=== PATIENT | male | born 1995 | race African-American/Black ===

== ENCOUNTER 2017-09-15 21:15 | Emergency (ER) | payer MEDICAID, SELFPAY ==
--- NOTE | 2017-09-15 21:43 | RAD ---
LEFT ANKLE THREE VIEWS: History: Injury. Comparison: None. FINDINGS: Some chronic appearing periosteal bone formation on the medial malleolus, likely retinacular injury. Small osteophytes of the medial shoulder of the ankle mortise. Small chip fracture off the lateral process of the talus. IMPRESSION: 1. Small chip fracture the lateral process of the talus. POS: [facility]
[2017-09-15] MEDS ORDERED: HYDROcodone/Acetaminophen 10/325 mg Tablet ONE (23:45)
== END 2017-09-16 00:54 | disposition home or self-care (01) ==
LOC: ERS 21:15
DX: S93.402A Sprain of unspecified ligament of left ankle, initial encounter (principal); F32.9 Major depressive disorder, single episode, unspecified; W52.XXXA Crushed, pushed or stepped on by crowd or human stampede, initial encounter

== ENCOUNTER 2017-10-25 17:58 | Emergency (ER) | payer SELFPAY ==
--- NOTE | 2017-10-25 18:27 | RAD ---
CHEST TWO VIEW 10/25/17 HISTORY: Cough. COMPARISON: None. FINDINGS: The lungs are clear. No pneumothorax or effusion. The cardiac silhouette and mediastinal contours are within normal limits. IMPRESSION: No acute intrathoracic abnormality. POS: [facility]
== END 2017-10-25 21:16 | disposition home or self-care (01) ==
LOC: ERS 17:58
DX: J20.9 Acute bronchitis, unspecified (principal); F32.9 Major depressive disorder, single episode, unspecified
CPT/HCPCS: 71046; 94640; J7620

== ENCOUNTER 2018-01-15 20:09 | Emergency (ER) | payer SELFPAY ==
[2018-01-15] MEDS ORDERED: Ketorolac Tromethamine 30 MG/ML VIAL ONE (20:55)
--- NOTE | 2018-01-15 21:54 | RAD ---
THREE VIEWS OF THE RIGHT ANKLE: 01/15/18 COMPARISON: None. HISTORY: Inversion of the right ankle with right ankle pain. FINDINGS: Three views right ankle shows no evidence of acute fracture or dislocation. No focal soft tissue swel ling is seen. No degenerative changes are present. IMPRESSION: No evidence of acute osseous abnormality. POS: [facility]
== END 2018-01-15 22:05 | disposition home or self-care (01) ==
LOC: ERS 20:09
DX: S93.401A Sprain of unspecified ligament of right ankle, initial encounter (principal); F32.9 Major depressive disorder, single episode, unspecified; W18.30XA Fall on same level, unspecified, initial encounter; Y93.67 Activity, basketball; Y92.214 College as the place of occurrence of the external cause
CPT/HCPCS: 96374; J1885

== ENCOUNTER 2019-11-14 18:30 | Emergency (ER) | payer SELFPAY ==
[2019-11-14 20:56] LABS: Bilirubin Negative (Negative); Blood, Urine Negative (Negative); Clarity Clear (Clear); Glucose, Urine (Dipstick) Normal (Negative); Leukocyte 250 Leu/uL (Negative); Mucous/LPF 1+ LPF (<2+); Nitrite Negative (Negative); Protein, Urine (Dipstick) 20 mg/dL (Neg-Trace); RBC/HPF 0-3 HPF (0-3); Squamous Epithelial 0-3 HPF (0-3); Urobilinogen Normal mg/dL (Less than 2); WBC/HPF 21-50 HPF (0-3)
[2019-11-14 21:03] LABS: Bacteria/HPF 1+ HPF (None Seen); Renal Epithelial 0-3 HPF (None Seen)
[2019-11-14] MEDS ORDERED: Lidocaine 1% PF 5 ML VIAL ONE (23:12)
[2019-11-14] MEDS ORDERED: cefTRIAXone\\ROCEPHIN 250 MG VIAL ONE (23:12)
[2019-11-14] MEDS ORDERED: Azithromycin 250 MG TAB ONE (23:12)
[2019-11-16 19:31] LABS: Chlam.trachomatis by PCR,Urine Not Detected (NotDetected)
== END 2019-11-14 23:42 | disposition home or self-care (01) ==
LOC: ERS 18:30
DX: N34.1 Nonspecific urethritis (principal); F32.9 Major depressive disorder, single episode, unspecified
CPT/HCPCS: 81003; 81015; 87086; 87491; 87591; 96372; 99283; J0696; J2001

== ENCOUNTER 2020-10-28 20:31 | Emergency (ER) | payer SELFPAY ==
[2020-10-28] MEDS ORDERED: Benzocaine 20% Spray 60 ML CAN ONE (21:19)
[2020-10-28 21:37] LABS: Bilirubin Negative (Negative); Blood, Urine Negative (Negative); Clarity Turbid (Clear); Glucose, Urine (Dipstick) Normal (Negative); Ketone, Urine Negative (Negative); Leukocyte 500 Leu/uL (Negative); Mucous/LPF Rare LPF (<2+); Nitrite Negative (Negative); Protein, Urine (Dipstick) 10 mg/dL (Neg-Trace); RBC/HPF 0-3 HPF (0-3); Specific Gravity, Urine 1.025 (1.002-1.036); Squamous Epithelial 0-3 HPF (0-3); WBC/HPF Greater than 50 HPF (0-3)
[2020-10-28 21:45] LABS: Bacteria/HPF Rare-Few HPF (None Seen); Renal Epithelial 0-3 HPF (None Seen)
[2020-10-28] MEDS ORDERED: cefTRIAXone\\ROCEPHIN 500 MG VIAL ONE (22:06)
[2020-10-28] MEDS ORDERED: Sterile Water 10 ML ONE (22:06)
[2020-10-29 20:24] LABS: Chlam.trachomatis by PCR,Urine DETECTED (NotDetected)
== END 2020-10-28 23:05 | disposition home or self-care (01) ==
LOC: ERS 20:31
DX: J02.9 Acute pharyngitis, unspecified (principal); N34.2 Other urethritis
CPT/HCPCS: 81003; 81015; 87081; 87430; 87491; 87591; 96372; 99283; J0696

== ENCOUNTER 2021-03-13 23:16 | Emergency (ER) | payer SELFPAY | END 2021-03-14 01:11 | disposition home or self-care (01) | LOC: ERS 23:16 | DX: S93.401A Sprain of unspecified ligament of right ankle, initial encounter (principal); X50.1XXA Overexertion from prolonged static or awkward postures, initial encounter; Y93.67 Activity, basketball ==

== ENCOUNTER 2021-03-30 13:48 | Emergency (ER) | payer SELFPAY ==
[2021-03-30 14:43] LABS: Bilirubin Negative (Negative); Blood, Urine Negative (Negative); Glucose, Urine (Dipstick) Negative (Negative); Ketone, Urine Negative (Negative); Leukocyte Negative (Negative); Nitrite Negative (Negative); Protein, Urine (Dipstick) Negative (Neg-Trace); Urobilinogen 0.2 mg/dL (Less than 2)
[2021-03-30 14:54] LABS: Clarity Clear (Clear)
[2021-03-30 14:55] LABS: Bacteria/HPF None Seen HPF (None Seen); RBC/HPF 0-3 HPF (0-3); Squamous Epithelial 0-3 HPF (0-3); WBC/HPF 0-3 HPF (0-3)
[2021-04-03 19:28] LABS: Chlam.trachomatis by PCR,Urine DETECTED (NotDetected)
== END 2021-03-30 15:15 | disposition home or self-care (01) ==
LOC: ERS 13:48
DX: Z20.2 Contact with and (suspected) exposure to infections with a predominantly sexual mode of transmission (principal); F17.200 Nicotine dependence, unspecified, uncomplicated
CPT/HCPCS: 81003; 87491; 87591; 99281

== ENCOUNTER 2021-07-16 19:51 | Emergency (ER) | payer SELFPAY ==
[2021-07-16] MEDS ORDERED: Ketorolac Tromethamine 30 MG/ML VIAL ONE (20:56)
[2021-07-16] MEDS ORDERED: HYDROcodone/Acetaminophen 10/325 mg Tablet ONE (20:56)
== END 2021-07-16 21:21 | disposition home or self-care (01) ==
LOC: ERS 19:51
DX: S93.401A Sprain of unspecified ligament of right ankle, initial encounter (principal); F17.200 Nicotine dependence, unspecified, uncomplicated; X58.XXXA Exposure to other specified factors, initial encounter
CPT/HCPCS: 96374; J1885

== ENCOUNTER 2021-08-15 09:40 | Emergency (ER) | payer SELFPAY ==
[2021-08-15] MEDS ORDERED: Ibuprofen 800 MG TAB ONE (11:13)
== END 2021-08-15 12:00 | disposition home or self-care (01) ==
LOC: ERS 09:40
DX: J02.9 Acute pharyngitis, unspecified (principal); F17.210 Nicotine dependence, cigarettes, uncomplicated
CPT/HCPCS: 87081; 87430; 99283

== ENCOUNTER 2021-09-20 21:44 | Emergency (ER) | payer SELFPAY ==
[2021-09-20] MEDS ORDERED: Ketorolac Tromethamine 30 MG/ML VIAL ONE (22:16)
[2021-09-20 22:53] LABS: Troponin I Less than 0.010 ng/mL (< 0.028)
== END 2021-09-20 23:15 | disposition home or self-care (01) ==
LOC: ERS 21:44
DX: R07.89 Other chest pain (principal); F17.210 Nicotine dependence, cigarettes, uncomplicated
CPT/HCPCS: 36415; 71045; 84484; 93005; 96372; J1885

== ENCOUNTER 2022-03-30 20:22 | Emergency (ER) | payer SELFPAY ==
[2022-03-30 21:05] LABS: Bilirubin Negative (Negative); Blood, Urine Negative (Negative); Clarity Clear (Clear); Glucose, Urine (Dipstick) Normal (Negative); Ketone, Urine Negative (Negative); Leukocyte 250 Leu/uL (Negative); Nitrite Negative (Negative); Protein, Urine (Dipstick) Negative (Neg-Trace); RBC/HPF 0-3 HPF (0-3); Specific Gravity, Urine 1.024 (1.002-1.036); Squamous Epithelial 0-3 HPF (0-3); Urobilinogen Normal mg/dL (Less than 2); pH, Urine 5.5 (5.0-9.0)
[2022-03-30 21:22] LABS: Bacteria/HPF Rare-Few HPF (None Seen)
[2022-03-30] MEDS ORDERED: cefTRIAXone\\ROCEPHIN 500 MG VIAL ONE (22:39)
[2022-03-31 15:00] LABS: Chlam.trachomatis by PCR,Urine DETECTED (NotDetected)
== END 2022-03-30 23:05 | disposition home or self-care (01) ==
LOC: ERS 20:22
DX: N34.2 Other urethritis (principal); F17.290 Nicotine dependence, other tobacco product, uncomplicated
CPT/HCPCS: 81003; 81015; 87086; 87491; 87591; 96372; 99283; J0696

== ENCOUNTER 2022-04-18 10:02 | Emergency (ER) | payer SELFPAY ==
[2022-04-18] MEDS ORDERED: Ibuprofen 800 MG TAB ONE (11:34)
== END 2022-04-18 11:57 | disposition home or self-care (01) ==
LOC: ERS 10:02
DX: S93.402A Sprain of unspecified ligament of left ankle, initial encounter (principal); X50.9XXA Other and unspecified overexertion or strenuous movements or postures, initial encounter; Y93.67 Activity, basketball

== ENCOUNTER 2023-10-03 23:14 | Emergency (ER) | payer SELFPAY ==
[2023-10-03] MEDS ORDERED: Ibuprofen 800 MG TAB ONE (23:35)
[2023-10-04 01:25] LABS: SARS-CoV-2 NAA Rapid Test Not Detected (NotDetected)
== END 2023-10-04 01:30 | disposition home or self-care (01) ==
LOC: ERS 23:14
DX: J10.1 Influenza due to other identified influenza virus with other respiratory manifestations (principal); Z20.822 Contact with and (suspected) exposure to COVID-19
CPT/HCPCS: 71045; 87081; 87430